=== PATIENT | male | born 1990 | race Caucasian/White ===

== ENCOUNTER 2019-09-06 14:42 | Emergency (ER) | payer MEDICAID ==
[2019-09-06 15:02] VITALS: BP 117/102; PULSE 110; O2SAT 96
--- NOTE | 2019-09-06 15:19 | ERPHSYRPT ---
- History of Present Illness Time Seen by Provider: 09/06/19 15:05 Source: patient Exam Limitations: no limitations Patient Subjective Stated Complaint: Pt got a piece of serbian sausage caught in his throat and is unable to dislodge it, hx of having a food bolus caught before Triage Nursing Assessment: Pt walked into the ER, doesn't appear to be in any distress, hypertensive, tachycardic, denies diffuclty with breathing, unable to swallow, rates pain 8/10 Physician History: The patient is a 21-year-old male who presents with the chief complaint of a food bolus impaction. Onset reportedly was 2 hours ago. He states he was eating some pulled sausage and feels as though the food is stuck it in his esophagus. ssince that time, he reports he is unable to handle his secretions and his head a globus sensation. Of note, he states he's had 3 prior episodes requiring endoscopy. This occurred in the state in [place]. He currently lives in [place]. He arrives alone and reportedly does not have his IV and left in his vehicle. Timing/Duration: today, hour(s) (2) Allergies/Adverse Reactions: glucagon Allergy (Verified 09/06/19 15:01) Home Medications: Buspirone HCl [Buspar] 15 mg PO TID 09/06/19 [History] Losartan Potassium 50 mg [Cozaar 50 MG] 100 mg PO DAILY 09/06/19 [History] Mirtazapine [Remeron] 15 mg PO DAILY 09/06/19 [History] Oxcarbazepine 300 mg [Trileptal 300 MG Tablet] 900 mg PO DAILY 09/06/19 [ History] PANTOPRAZOLE 40 mg Tablet [Protonix 40MG Tablet] 40 mg PO QAM 09/06/19 [ History] Promethazine HCl 12.5 mg PO UD PRN 09/06/19 [History] Vortioxetine Hydrobromide [Brintellix] 20 mg PO DAILY 09/06/19 [History] - Review of Systems Constitutional: No Symptoms, No Fever, No Chills Eyes: No No Symptoms Ears, Nose, & Throat: Other (Globus sensation) Respiratory: No Cough, No Dyspnea Abdominal/Gastrointestinal: Other (Globus sensation) Genitourinary Symptoms: No No Symptoms Musculoskeletal: No No Symptoms Skin: No No Symptoms Neurological: No No Symptoms Hematologic/Lymphatic: No Symptoms All Other Systems: Reviewed and Negative - Past Medical History Pertinent Past Medical History: Yes Cardiac History: Hypertension Respiratory History: Sleep Apnea Psycho-Social History: Anxiety, Depression Other Medical History: 3L at night - Past Surgical History Past Surgical History: Yes Gastrointestinal: Appendectomy, Cholecystectomy Musculoskeletal: Other Other Surgical History: bilateral tibial osteotomy with IM nail, umbilical hernia repair - Social History Smoking Status: Former smoker Exposure to second hand smoke: No Drug Use: none Patient Lives Alone: Yes - Nursing Vital Signs Nursing Vital Signs: Initial Vital Signs Temperature 98.6 F 09/06/19 14:51 Pulse Rate 110 H 09/06/19 14:51 Respiratory Rate 10 L 09/06/19 14:51 Blood Pressure 117/102 09/06/19 14:51 O2 Sat by Pulse Oximetry 96 09/06/19 14:51 Pain Scale Pain Intensity 8 - Physical Exam General Appearance: no apparent distress Eye Exam: PERRL/EOMI, eyes nml inspection, No photophobia Ears, Nose, Throat Exam: normal ENT inspection, other (Normal phonation, appears to be handling secretions well. ) Neck Exam: normal inspection, non-tender Respiratory Exam: normal breath sounds, lungs clear, airway intact, No chest tenderness, No respiratory distress, No diminished breath sounds, No accessory muscle use Cardiovascular Exam: regular rate/rhythm Gastrointestinal/Abdomen Exam: soft Extremity Exam: normal inspection Neurologic Exam: alert, oriented x 3, cooperative Skin Exam: normal color, warm, dry, No rash SpO2 Interpretation: normal SpO2: 96 O2 Delivery: Room Air - Course Nursing assessment & vital signs reviewed: Yes - Progress Progress: improved Progress Note: 09/06/19 15:51 during my evaluation I had the patient drink water and miraculously he was able to drink intact couple on her without difficulty, vomiting and was able to handle his secretions. He feels as if the food bolus impaction has resolved. 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 - Departure Departure Disposition: Home (The patien eloped) Clinical Impression: Globus sensation Condition: Stable Critical Care Time: No Plan of Treatment: Low suspicion for food bolus impaction. This patient fits the description of a patient who has frequented the [facility] with the same complaint and fits the same physical description. This individual is known to provide a false name and demographics and will present with a complaint of a food bolus impaction with the intent of what is thought to receive sedation or propofol. May also be a psych component to this as well. I suspect this may be the same individual. He reported started to experience symptoms 2 hrs prior to arrival after eating sausage at a friends house, but could not tell me where his friend lives, address, etc. even though he traveled from [place], [place]. He then informed me he drove to a [employer] in [place] and ate a hamburger with said food bolus impaction without vomiting and drove back to the [place] to this location to be evaluated. This further strengthens my suspicion that he is unlikely suffering from a food bolus impaction. He then demonstrated the ability to drink water without difficulty and afterwords stated he was feeling better. Refer to progress section of note pertaining to how the patient then proceeded to elope from the ED.
== END 2019-09-06 15:45 | disposition home or self-care (01) ==
LOC: ED 14:42
DX: F45.8 Other somatoform disorders (principal)
CPT/HCPCS: 99283